=== PATIENT | female | born 1955 | race Hispanic/Latino ===

== ENCOUNTER 2018-07-08 14:57 | Emergency (ER) | payer OTHER ==
[2018-07-08 16:03] LABS: APPEARANCE,URINE Clear (CLEAR); BILIRUBIN,URINE Negative (NEGATIVE); COLOR,URINE Yellow (YELLOW); GLUCOSE, URINE (UA) Negative (NEGATIVE); KETONES,URINE 40 mg/dL (NEGATIVE); LEUKOCYTE ESTERASE ,URINE Negative (NEGATIVE); NITRATE,URINE Negative (NEGATIVE); OCCULT BLOOD,URINE Negative (NEGATIVE); PROTEIN,URINE Negative (NEGATIVE)
[2018-07-08 16:14] LABS: BACTERIA,URINE Moderate /HPF (None Seen); RBC,URINE 0-1 /HPF (0-1); SQUAMOUS EPITHELIAL CELL,UR 0-2 /HPF (0-2); WBC,URINE 0-1 /HPF (0-1)
[2018-07-08 16:18] LABS: BASOPHILS % (AUTO) 0.6 % (0.0-5.0); EOSINOPHILS % (AUTO) 0.1 % (0.0-8.0); HEMATOCRIT 45.1 % (36-48); LYMPHOCYTES % (AUTO) 34.9 % (21.0-51.0); MEAN CORPUSCULAR HEMOGLOBIN 27.9 pg (27.0-33.0); MEAN CORPUSCULAR HGB CONC 33.7 g/dL (32.0-36.0); MEAN CORPUSCULAR VOLUME 82.9 fL (79-99); MONOCYTES % (AUTO) 12.2 % (3.0-13.0); NEUTROPHILS % (AUTO) 52.2 % (40.0-77.0); NUCLEATED RED BLOOD CELLS 0.1 % (0.0-0.19); PLATELET COUNT (AUTO) 174 K/uL (130-400); RED BLOOD CELL COUNT(AUTO) 5.44 MIL/uL (4.00-5.50); RED CELL DISTRIBUTION WIDTH 14.5 % (11.0-15.5); WHITE BLOOD COUNT (AUTO) 4.9 K/uL (4.8-10.8)
[2018-07-08 16:28] LABS: INR 0.89 (0.85-1.15); PARTIAL THROMBOPLASTIN TIME 30.3 SEC (26.3-35.5); PROTHROMBIN TIME 9.4 SEC (9.6-11.6)
[2018-07-08 16:34] LABS: CARBON DIOXIDE 26 mmol/L (21-32); CHLORIDE 97 mmol/L (101-111); GLOMERULAR FILTR. RATE CALC 60 mL/min (>60); GLUCOSE,RANDOM 84 mg/dL (70-105); POTASSIUM 3.4 mmol/L (3.5-5.1); SODIUM SERUM 137 mmol/L (136-145); UREA NITROGEN, BLOOD 18 mg/dL (7-18)
[2018-07-08] MEDS ORDERED: SODIUM CHLORIDE 0.9% 1000ML 1,000 ML IV ONE (16:36)
[2018-07-08] MEDS ORDERED: ACETAMINOPHEN 325 MG TAB ONE (16:36)
[2018-07-08 16:43] LABS: ALANINE AMINOTRANSFERASE 56 U/L (12-78); ALBUMIN 3.6 g/dL (3.5-5.0); ASPARTATE AMINOTRANSFERASE 73 U/L (10-37); BILIRUBIN,TOTAL 0.8 mg/dL (0.2-1.0); CREATINE KINASE, TOTAL 110 U/L (21-232); MYOGLOBIN 52 ng/mL (10-92); TOTAL PROTEIN, SERUM 7.6 g/dL (6.0-8.3); TROPONIN I < 0.04 ng/mL (0.00-0.06)
[2018-07-08] MEDS ORDERED: SODIUM CHLORIDE 0.9% 50 ML IV ONE (17:27)
[2018-07-08] MEDS ORDERED: CEFTRIAXONE SODIUM 1 GM ONE (17:27)
[2018-07-08] MEDS ORDERED: OSELTAMIVIR PHOSPHATE 75 MG CAP ONE (19:02)
== END 2018-07-08 19:25 | disposition home or self-care (01) ==
LOC: EDH 14:57
DX: J10.1 Influenza due to other identified influenza virus with other respiratory manifestations (principal); E86.9 Volume depletion, unspecified; M32.9 Systemic lupus erythematosus, unspecified
CPT/HCPCS: 36415; 71045; 80053; 81001; 82550; 83605 ×2; 83874; 84484; 85025; 85610; 85730; 87040 ×2; 87088; 87804 ×2; 93005; 96361 ×2; 96374; 99284; J0696; J7030

== ENCOUNTER 2020-02-25 09:38 | Observation (INO) | payer OTHER ==
[~2020-02-25] VITALS: Ht 162.6 cm; Wt 71.7 kg
[2020-02-25] MEDS ORDERED: ASPIRIN 325 MG TABLET ONE (09:59)
[2020-02-25] MEDS ORDERED: NITROGLYCERIN 1GM/1 INCH PACKET TD ONE (09:59)
[2020-02-25] MEDS ORDERED: KETOROLAC TROMETHAMINE 15MG/ML ONE (09:59)
[2020-02-25 10:03] LABS: BASOPHILS % (AUTO) 0.7 % (0.0-5.0); EOSINOPHILS % (AUTO) 2.3 % (0.0-8.0); HEMATOCRIT 40.5 % (36-48); LYMPHOCYTES % (AUTO) 33.8 % (21.0-51.0); MEAN CORPUSCULAR HEMOGLOBIN 27.7 pg (27.0-33.0); MEAN CORPUSCULAR HGB CONC 32.3 g/dL (32.0-36.0); MEAN CORPUSCULAR VOLUME 85.6 fL (79-99); MONOCYTES % (AUTO) 6.2 % (3.0-13.0); NEUTROPHILS % (AUTO) 56.7 % (40.0-77.0); PLATELET COUNT (AUTO) 248 K/uL (130-400); RED BLOOD CELL COUNT(AUTO) 4.73 MIL/uL (4.00-5.50); RED CELL DISTRIBUTION WIDTH 13.9 % (11.0-15.5); WHITE BLOOD COUNT (AUTO) 9.7 K/uL (4.8-10.8)
[2020-02-25 10:32] LABS: ALBUMIN 3.6 g/dL (3.5-5.0); BILIRUBIN,TOTAL 0.6 mg/dL (0.2-1.0); POTASSIUM 3.8 mmol/L (3.5-5.1); TOTAL PROTEIN, SERUM 7.2 g/dL (6.0-8.3)
[2020-02-25 10:40] LABS: CREATININE 0.8 mg/dL (0.5-1.5)
[2020-02-25] MEDS ORDERED: HYDROCODONE/ACETAMINOPHEN 5/325 MG TAB PO PRN (12:45)
[2020-02-25] MEDS ORDERED: ACETAMINOPHEN-CODEINE 300/30MG TAB PO PRN (12:45)
[2020-02-25] MEDS ORDERED: HYDRALAZINE HCL 20 MG/ML VIAL IV PRN (12:45)
[2020-02-25] MEDS ORDERED: NITROGLYCERIN 0.4 MG SL TAB SL PRN (12:45)
[2020-02-25 15:00] VITALS: BP 101/57
[2020-02-25] MEDS ORDERED: ACETAMINOPHEN 325 MG TAB PO PRN ×2 (16:15)
[2020-02-25] MEDS: KETOROLAC TROMETHAMINE 15MG/ML IM PRN (19:18)
[2020-02-25 19:25] VITALS: BP 107/68
[2020-02-25 23:36] VITALS: BP 99/56
[2020-02-26 03:02] VITALS: BP 102/57
[2020-02-26 05:00] LABS: BASOPHILS % (AUTO) 0.7 % (0.0-5.0); HEMATOCRIT 37.8 % (36-48); LYMPHOCYTES % (AUTO) 43.5 % (21.0-51.0); MEAN CORPUSCULAR HEMOGLOBIN 28.2 pg (27.0-33.0); MEAN CORPUSCULAR HGB CONC 32.5 g/dL (32.0-36.0); MEAN CORPUSCULAR VOLUME 86.7 fL (79-99); MONOCYTES % (AUTO) 7.8 % (3.0-13.0); NEUTROPHILS % (AUTO) 44.8 % (40.0-77.0); PLATELET COUNT (AUTO) 246 K/uL (130-400); RED BLOOD CELL COUNT(AUTO) 4.36 MIL/uL (4.00-5.50); RED CELL DISTRIBUTION WIDTH 13.9 % (11.0-15.5)
[2020-02-26 05:38] LABS: CREATININE 0.9 mg/dL (0.5-1.5); POTASSIUM 4.1 mmol/L (3.5-5.1)
[2020-02-26 08:02] VITALS: BP 118/74
[2020-02-26] MEDS: ENOXAPARIN SODIUM 40 MG/0.4 ML SYRINGE SQ SCH (08:11)
[2020-02-26 11:37] VITALS: BP 107/67
[2020-02-26] MEDS ORDERED: REGADENOSON 0.4 MG/5 ML PF SYG IVP SCH (13:45)
[2020-02-26 18:19] VITALS: BP 138/73
[2020-02-26 19:57] VITALS: BP 113/73
[2020-02-26] MEDS ORDERED: METOPROLOL TARTRATE 25 MG TAB PO SCH (21:00)
[2020-02-26] MEDS ORDERED: ATORVASTATIN CALCIUM 20 MG TABLET PO SCH (21:00)
[2020-02-27 00:04] VITALS: BP 111/75
[2020-02-27 03:53] VITALS: BP 114/70
[2020-02-27 08:13] VITALS: BP 102/65
[2020-02-27] MEDS ORDERED: IBUP-2070 PO (08:15)
[2020-02-27] MEDS: ENOXAPARIN SODIUM 40 MG/0.4 ML SYRINGE SQ SCH (08:37)
[2020-02-27] MEDS: KETOROLAC TROMETHAMINE 15MG/ML IM PRN (08:37)
[2020-02-27] MEDS ORDERED: ASPIRIN 81MG TAB.CHEW PO SCH (09:00)
--- NOTE | 2020-02-27 09:30 | NUR ---
INSTRUCTIONS DISCHARGE INSTRUCTIONS GIVEN TO PATIENT USING TEACH BACK. NEW PRESCRIPTION ELECTRONICALLY SENT TO PATIENT'S PREFERRED PHARMACY REQUESTED. PATIENT REMOVED HER OWN IV WHEN NURSE WAS OUT OF THE ROOM. SITE APPEARS CLEAN WITH NO BLEEDING TO SITE. NO QUESTIONS OR CONCERNS VOICED. PENDING RIDE HOME.
== END 2020-02-27 09:50 | disposition home or self-care (01) ==
LOC: EDH 09:38 → EDHIP 12:40 → 3AH 13:44
PROVIDERS: ADMIT Hospitalist; ATTEND Hospitalist
DX: R07.89 Other chest pain (principal); M32.9 Systemic lupus erythematosus, unspecified; I20.9 Angina pectoris, unspecified; R94.31 Abnormal electrocardiogram [ECG] [EKG]; F17.200 Nicotine dependence, unspecified, uncomplicated; Z79.899 Other long term (current) drug therapy
CPT/HCPCS: 36415 ×2; 71045; 78452; 80048; 80053; 80061; 84484 ×3; 85025 ×2; 85378; 85651; 86140; 93005 ×2; 93017; 93306; 93356; 96372 ×3; 99291; A4600; A9500 ×2; G0378 ×42; J1650 ×2; J1885 ×3; J2785; 96374

== ENCOUNTER 2020-06-15 11:39 | Emergency (ER) | payer OTHER ==
[~2020-06-15 11:39] MED LIST: IBUP-2070 PO
[2020-06-15] MEDS ORDERED: ACETAMINOPHEN EXTRA STRENGTH 500 MG TABLET ONE (11:56)
[2020-06-15] MEDS ORDERED: LABETALOL 20 MG/4 ML DISP.SYRIN IV ONE (11:56)
[2020-06-15 12:22] LABS: BASOPHILS % (AUTO) 0.8 % (0.0-5.0); EOSINOPHILS % (AUTO) 1.8 % (0.0-8.0); HEMATOCRIT 40.3 % (36-48); LYMPHOCYTES % (AUTO) 36.5 % (21.0-51.0); MEAN CORPUSCULAR HEMOGLOBIN 28.3 pg (27.0-33.0); MEAN CORPUSCULAR HGB CONC 32.8 g/dL (32.0-36.0); MEAN CORPUSCULAR VOLUME 86.3 fL (79-99); NEUTROPHILS % (AUTO) 54.8 % (40.0-77.0); PLATELET COUNT (AUTO) 257 K/uL (130-400); RED BLOOD CELL COUNT(AUTO) 4.67 MIL/uL (4.00-5.50); RED CELL DISTRIBUTION WIDTH 13.5 % (11.0-15.5)
[2020-06-15 12:33] LABS: CREATININE 0.8 mg/dL (0.5-1.5); POTASSIUM 3.8 mmol/L (3.5-5.1)
[2020-06-15 12:35] LABS: INR 0.93 (0.85-1.15); PARTIAL THROMBOPLASTIN TIME 26.8 SEC (26.3-35.5); PROTHROMBIN TIME 10.1 SEC (9.6-11.6)
[2020-06-15 12:38] LABS: ALBUMIN 3.8 g/dL (3.5-5.0); BILIRUBIN,TOTAL 0.6 mg/dL (0.2-1.0); TOTAL PROTEIN, SERUM 7.5 g/dL (6.0-8.3)
[2020-06-15] MEDS ORDERED: KETOROLAC TROMETHAMINE 30MG/ML ONE ×2 (12:39→12:55)
[2020-06-15 13:08] LABS: RAPID GROUP A STREP NEGATIVE (NEGATIVE)
== END 2020-06-15 15:52 | disposition home or self-care (01) ==
LOC: EDH 11:39
DX: U07.1 COVID-19 (principal); G44.209 Tension-type headache, unspecified, not intractable; R03.0 Elevated blood-pressure reading, without diagnosis of hypertension; M32.9 Systemic lupus erythematosus, unspecified
CPT/HCPCS: 36415; 71045; 80053; 82550; 84484; 85025; 85610; 85730; 87426; 87804 ×2; 87880; 93005; 96361; 96374; 96375; 99285; J1885 ×2

== ENCOUNTER → 2021-04-16 | Outpatient (CLI) | payer OTHER | END | disposition home or self-care (01) | LOC: LAB 13:13 | PROVIDERS: ATTEND Internal Medicine | DX: M19.90 Unspecified osteoarthritis, unspecified site (principal); R53.83 Other fatigue; R51.0 Headache with orthostatic component, not elsewhere classified | CPT/HCPCS: 82306 ==

== ENCOUNTER → 2024-12-13 | Outpatient (CLI) | payer OTHER ==
[2024-12-13 15:16] LABS: BASOPHILS # (AUTO) 0.04 K/uL (0.00-0.20); BASOPHILS % (AUTO) 0.5 % (0.0-5.0); EOSINOPHILS # (AUTO) 0.14 K/uL (0.00-0.70); EOSINOPHILS % (AUTO) 1.7 % (0.0-8.0); HEMATOCRIT 40.9 % (36-48); IMMATURE GRANULOCYTE ABSOLUTE 0.02 K/uL (0-1); LYMPHOCYTES # (AUTO) 3.1 K/uL (1.0-4.8); LYMPHOCYTES % (AUTO) 36.5 % (21.0-51.0); MEAN CORPUSCULAR HEMOGLOBIN 28.6 pg (27.0-33.0); MEAN CORPUSCULAR HGB CONC 32.3 g/dL (32.0-36.0); MEAN CORPUSCULAR VOLUME 88.5 fL (79-99); MONOCYTES # (AUTO) 0.7 K/uL (0.1-1.0); MONOCYTES % (AUTO) 7.7 % (3.0-13.0); NEUTROPHILS # (AUTO) 4.5 K/uL (1.8-7.7); NEUTROPHILS % (AUTO) 53.4 % (40.0-77.0); PLATELET COUNT (AUTO) 242 K/uL (130-400); RED BLOOD CELL COUNT(AUTO) 4.62 MIL/uL (4.00-5.50); RED CELL DISTRIBUTION WIDTH 14.3 % (11.0-15.5); WHITE BLOOD COUNT (AUTO) 8.4 K/uL (4.8-10.8)
[2024-12-13 15:31] LABS: ALBUMIN 3.6 g/dL (3.5-5.0); BILIRUBIN,TOTAL 0.6 mg/dL (0.2-1.0); CREATININE 0.8 mg/dL (0.5-1.0); POTASSIUM 4.1 mmol/L (3.5-5.1); TOTAL PROTEIN, SERUM 7.3 g/dL (6.0-8.3)
[2024-12-13 15:39] LABS: THYROID STIMULATING HORMONE 1.03 uIU/mL (0.36-3.74)
== END | disposition home or self-care (01) ==
LOC: LAB 14:35
PROVIDERS: ATTEND Internal Medicine
DX: E03.9 Hypothyroidism, unspecified (principal); R53.83 Other fatigue; R41.3 Other amnesia; M35.9 Systemic involvement of connective tissue, unspecified
CPT/HCPCS: 36415; 80053; 80061; 84443; 85025; 85651; 86038; 86140; 86215; 86235

== ENCOUNTER → 2024-12-21 | Outpatient (CLI) | payer OTHER ==
--- NOTE | 2024-12-22 09:03 | HMCIMG ---
Exam Type: MAMMO SCREENING BILATERAL Clinical Information: ROUTINE SCREENING Comparison: March 04, 2015 Technique: The breasts are heterogenously dense, which may obscure small mases. Area of parenchymal asymmetry with possible architectural distortion seen involving the left breast upper outer quadrant. This warrants further evaluation with diagnostic mammography in the form of spot compression views and breast ultrasound. There is no nipple retraction or skin thickening. Benign-appearing calcifications are seen. CAD shows no additional worrisome regions. IMPRESSION: Areas of parenchymal asymmetry with possible architectural distortion which warrants further evaluation with diagnostic mammography in the form of spot compression views and breast ultrasound. BI-RADS: CATEGORY 0: INCOMPLETE. NEED ADDITIONAL IMAGING EVALUATION.
== END | disposition home or self-care (01) ==
LOC: RAH 10:43
PROVIDERS: ATTEND Internal Medicine
DX: Z12.31 Encounter for screening mammogram for malignant neoplasm of breast (principal); R92.333 Mammographic heterogeneous density, bilateral breasts
CPT/HCPCS: 77067

== ENCOUNTER → 2025-02-28 | Outpatient (CLI) | payer OTHER ==
[~2025-02-28] MED LIST changes: +IBUP-1492 PO; -IBUP-2070 PO
--- NOTE | 2025-02-28 09:43 | HMCIMG ---
Left BREAST ULTRASOUND: Findings: Real-time examination of the [right/left] breast demonstrates heterogeneous echotexture throughout the breast left breast at 1:00 there is a lesion measuring 1.9 x 1.8 x 1.9 cm it is heterogeneous with shadowing, than wide with microcalcification. Suspicion for possible malignancy.. The left breast at 3:00 there is a small cyst seen measuring 0.6 x 0.5 x 0.7 cm. There is atelectasis seen at 6:00 measuring 0.5 x 0.4 x 0.5 cm. The left axillary region there is a lymph node measuring 1.4 x 0.8 x 2.8 cm with fatty hilum.. IMPRESSION: Left breast at 1:00 there is a lesion seen with microcalcification and satting which is amenable for ultrasound-guided biopsy for histological sampling. FINAL ASSESSMENT: ACR: BI-RAD -4. Suspicious: Finding(s) without all the characteristics morphology of breast cancer but indicatingadefine probability of being malignant: biopsy should be considered.
--- NOTE | 2025-02-28 09:46 | HMCIMG ---
DIGITAL left breast DIAGNOSTIC MAMMOGRAM Technique: The digital mammographic examination of left breast in craniocaudal, mediolateral oblique views along with CAD was obtained. Coned-down compression view of the left breast was also obtained. History: This is a 69 years year-old female for follow-up for mammogram from 12/21/2024.. Patient has no family history of breast cancer. Patient has no complaint Reference:Prior mammogram from 12/21/2024, 03/04/2015 are available.. Breast composition: Breast composition C: The breasts are heterogeneously dense, which may obscure small masses. Finding: The digital mammographic examination of left breast in craniocaudal and mediolateral oblique view along with CAD demonstrates a lesion with microcalcification with spiculation which is seen and also a ultrasound at 1:00.. There are 2 other densities seen which demonstrate to be a cyst at 6:00 and 3:00 by ultrasound.. There is no evidence of any dendritic mass, cluster microcalcification or architectural distortion. The retromammary fat appears to be normal. IMPRESSION: Left breast at 1:00 there is a lesion approximately 2 cm with microcalcification and spiculation which is amenable for ultrasound-guided biopsy for histological sampling.. FINAL ASSESSMENT: ACR: BI-RAD -4. Suspicious: Finding(s) without all the characteristics morphology of breast cancer but indicatingadefine probability of being malignant: biopsy should be considered. NOTE: IF A WORK-UP OF THIS PATIENT LEADS TO A BIOPSY, PLEASE FORWARD A COPY OF THE PATHOLOGY REPORT TO OUR OFFICE REQUIRED BY [facility] EFFECTIVE APRIL 11, 1994. A NEGATIVE MAMMOGRAM SHOULD NOT PRECLUDE BIOPSY OF A CLINICALLY PALPABLE SUSPICIOUS MASS, 10% OF BREAST CANCERS ARE MAMMOGRAPHICALLY OCCULT. THIS MAMMOGRAPHY FACILITY IS FULLY ACCREDITED BY THE FOOD AND DRUG [employer]MIN[employer]RATION (FDA). THANK YOU FOR THIS REFERRAL.
== END | disposition home or self-care (01) ==
LOC: RAH 08:06
PROVIDERS: ATTEND Internal Medicine
DX: N60.02 Solitary cyst of left breast (principal); I25.10 Atherosclerotic heart disease of native coronary artery without angina pectoris; R92.8 Other abnormal and inconclusive findings on diagnostic imaging of breast
CPT/HCPCS: 76641; 77065

== ENCOUNTER → 2025-03-20 | Outpatient (CLI) | payer OTHER ==
[~2025-03-20] MED LIST changes: +LIDOCAINE HCL 1% 20 ML VIAL MISC ONE
[2025-03-20 10:06] LABS: INR 1.01 (0.85-1.15)
--- NOTE | 2025-03-20 11:30 | NUR ---
ULTRASOUND GUIDED LEFT BREAST NODULE BX PROCEDURE PERFORMED BY DR. GERTRUDIS PIERCE. PUNCTURE SITE TO LEFT OUTER BREAST AND PATIENT TOLERATED PROCEDURE WELL. SPECIMEN X4 COLLECTED AND SENT TO LAB. END OF PROCEDURE AT 1115. BIOPSY NEEDLE REMOVED AND BAND-AID APPLIED- NO BLEEDING NOTED. DISCHARGE INSTRUCTIONS GIVEN TO PATIENT AND VERBALIZED UNDERSTANDING. MAMMO OF LEFT BREAST TO FOLLOW FOR CONFIRMATION OF PLACEMENT OF TISSUE MARKER.
--- NOTE | 2025-03-21 13:16 | HMCIMG ---
DIGITAL left breast DIAGNOSTIC MAMMOGRAM postbiopsy Technique: The digital mammographic examination of left breast in craniocaudal, mediolateral oblique views along with CAD was obtained. History: This is a 69 years year-old female biopsy with placement of a biopsy marker Reference:Prior mammogram from 02/28/2025, 12/21/2024, and 03/04/2015 are available.. Breast composition: Breast composition C: The breasts are heterogeneously dense, which may obscure small masses. Finding: The digital mammographic examination of left breast in craniocaudal and mediolateral oblique view along with CAD demonstrates a biopsy marker posterior to the mass in place.. . IMPRESSION: Biopsy marker in place posterior to the lesion. FINAL ASSESSMENT: Post-procedure Mammogram for Marker Placement. NOTE: IF A WORK-UP OF THIS PATIENT LEADS TO A BIOPSY, PLEASE FORWARD A COPY OF THE PATHOLOGY REPORT TO OUR OFFICE REQUIRED BY [facility] EFFECTIVE APRIL 11, 1994. A NEGATIVE MAMMOGRAM SHOULD NOT PRECLUDE BIOPSY OF A CLINICALLY PALPABLE SUSPICIOUS MASS, 10% OF BREAST CANCERS ARE MAMMOGRAPHICALLY OCCULT. THIS MAMMOGRAPHY FACILITY IS FULLY ACCREDITED BY THE FOOD AND DRUG ADMINISTRATION (FDA). THANK YOU FOR THIS REFERRAL.
--- NOTE | 2025-03-21 14:48 | HMCIMG ---
PERCUTANEOUS ULTRASOUND-GUIDED BIOPSY OF left breast lesion at 1:00 BREAST MASS: CLINICAL HISTORY: This is a 69 [id number] female with left breast hypoechoic lesion at 1:00 for ultrasound-guided biopsy. The risk and benefit was explained to the patient. The risks include bleeding and infection. The patient consented to the procedure. Procedure: Under ultrasound guidance left breast lesion at 1:00 was localized. After sterile prep and drape, 1% Xylocaine was used for local anesthetic. Using a 14-gauge Bard gun a total of 4 core biopsy was obtained. Postbiopsy a biopsy marker was placed. The specimen was sent for histology and cell block. Patient tolerated procedure well. IMPRESSION: 1. PERCUTANEOUS ULTRASOUND-GUIDED BIOPSY OF left BREAST WITH SPECIMENS SENT FOR HISTOLOGY AND CELL BLOCK. THE PATIENT TOLERATED PROCEDURE WELL. PATHOLOGY REPORT IS PENDING. 2. PATIENT IS TO HAVE A POST BIOPSY MARKER PLACEMENT UNILATERAL left BREAST MAMMOGRAM.
== END ==
LOC: RAH 09:27
PROVIDERS: ATTEND Internal Medicine
DX: N63.21 Unspecified lump in the left breast, upper outer quadrant (principal); R92.8 Other abnormal and inconclusive findings on diagnostic imaging of breast; C50.412 Malignant neoplasm of upper-outer quadrant of left female breast; Z79.01 Long term (current) use of anticoagulants
CPT/HCPCS: 19083; 77065; 85610; 85730; 88361; 36415; 88305; 88342; 88341; A4215 ×2

== ENCOUNTER 2025-04-30 06:13 | Observation (INO) | payer OTHER ==
--- NOTE | 2025-04-26 12:55 | EKG ---
[facility] Test Date: 2025-04-26 Test Time: 12:47:09 Pat Name: JOVITA VERGARA Department: [facility] Room: Gender: F Manufacturing Baker: [id number] : 1955 Requested By: BENSON DUBOIS Order Number: [id number] Reading MD: Ag Reeder Measurements Intervals Hammond Rate: 63 P: 46 LA: 167 QRS: 88 QRSD: 99 T: 79 QT: 430 QTc: 441 Interpretive Statements Sinus rhythm Anteroseptal infarct, age indeterminate Compared to ECG 06/15/2020 12:06:35 Myocardial infarct finding now present T-wave abnormality no longer present Electronically Signed On 04-26-2025 16:33:19 CDT by Ag Reeder Please click the below link to view image of tracing.
[2025-04-26 13:05] LABS: IMMATURE GRANULOCYTE ABSOLUTE 0.02 K/uL (0-1); NUCLEATED RED BLOOD CELLS 0.0 % (0.0-0.19); PLATELET COUNT (AUTO) 242 K/uL (130-400); RED BLOOD CELL COUNT(AUTO) 4.48 MIL/uL (4.00-5.50); RED CELL DISTRIBUTION WIDTH 13.9 % (11.0-15.5); WHITE BLOOD COUNT (AUTO) 8.1 K/uL (4.8-10.8)
[2025-04-26 13:06] VITALS: BP 98/67; PULSE 66; RESP 13; TEMP 97.9
[2025-04-26 13:13] LABS: APPEARANCE,URINE CLEAR (CLEAR); GLUCOSE, URINE (UA) NEGATIVE (NEGATIVE); LEUKOCYTE ESTERASE ,URINE NEGATIVE Leu/uL (NEGATIVE); NITRATE,URINE NEGATIVE (NEGATIVE); OCCULT BLOOD,URINE NEGATIVE (NEGATIVE)
[2025-04-26 13:18] LABS: ADD UA MICROSCOPIC NO
[2025-04-26 13:23] LABS: ASPARTATE AMINOTRANSFERASE 15.0 U/L (10-37); CREATININE 0.7 mg/dL (0.5-1.0); GLOMERULAR FILTR. RATE CALC 94.0 mL/min (>90); GLUCOSE,RANDOM 78.0 mg/dL (70-105); SODIUM SERUM 140.0 mmol/L (136-145); TOTAL PROTEIN, SERUM 7.2 g/dL (6.0-8.3); UREA NITROGEN, BLOOD 16.0 mg/dL (7-18)
[2025-04-26 13:57] LABS: INR 0.97 (0.85-1.15)
--- NOTE | 2025-04-27 09:36 | NUR ---
RE: EKG REPORTED EKG RESULTS TO DR URIBE, NO NEW ORDERS RECEIVED.
[~2025-04-30] VITALS: Ht 161.3 cm; Wt 61.8 kg
[2025-04-30] VITALS (24 sets, daily range): BP systolic 101–133; BP diastolic 47–89; PULSE 62–114; RESP 16–19; TEMP 97.1–98.3; O2SAT 92
[~2025-04-30 06:13] MED LIST changes: +ALPR0.5T8 PO; -IBUP-1492 PO; -LIDOCAINE HCL 1% 20 ML VIAL MISC ONE; +RISE35TA12 PO
[2025-04-30] MEDS ORDERED: LIDOCAINE PF 100MG/5ML (2%) SYRINGE 5ML ONE (07:39)
[2025-04-30] MEDS ORDERED: MIDAZOLAM HCL 1 MG/ML 2ML VIAL ONE (07:39)
[2025-04-30] MEDS: LACTATED RINGERS 1000ML 1,000 ML IV ONE (08:26)
--- NOTE | 2025-04-30 10:00 | NUR ---
SENTINEL NODE MARKING PATIENT ARRIVED TO RADIOLOGY. PROCEDURE AND RISKS EXPLAINED. PATIENT VERBALIZED UNDERSTANDING. LT BREAST PREPPED WITH STERILE TECHNIQUE. FOUR INJECTIONS WITH RADIOACTIVE MATERIAL ADMINISTERED BY DR Heaven PIERCE. PATIENT TOLERATED PROCEDURE WELL AND LT BREAST LYMPH NODES MARKED BY FIRE HOSE CURER AND PATIENT TRANSPORTED TO [facility] AT 1000.
[2025-04-30] MEDS ORDERED: GLYCOPYRROLATE 0.2 MG/ML 5 ML VIAL ONE (11:20)
--- NOTE | 2025-04-30 13:23 | OP ---
Operative Note: DATE OF PROCEDURE: 04/30/25 Surgeon; Dr. Irizarry LEAK HUNTER: [] PREOPERATIVE DIAGNOSIS: left breast cancer POSTOPERATIVE DIAGNOSIS: Left breast cancer with clinically positive lymph nodes on a surgical exam PROCEDURE: Left Mastectomy with left axillary lymph node dissection INDICATIONS: Patient with a left breast cancer locally advanced needing local regional control DESCRIPTION OF PROCEDURE:Patient is brought to the operating room placed on the operating table in a supine position once general endotracheal anesthesia is achieved patient's left arm and chest are prepped and draped in sterile fashion. Using the hand-held Doppler identified the medial perforators are marked about the skin. I then used the ultrasound and identified in the upper quadrant the mass. There was an area that was very close to the skin. Therefore I marked my skin incision to include this area within my excision. I marked my inferior mammary fold, the sternum and the xiphoid and the superior border of the breast under the clavicle. we then proceeded to do elliptical incision over top of the breast and started to create our skin flaps started developing my superior and inferior skin flaps. Medially we went to the level of the sternum making sure to preserve the medial perforators that I had marked. superiorly to the level of the clavicle, inferior to the inframammary fold and lateral to her insertion of the serratus muscle. We then proceeded to use the Bovie cautery to remove the breast of the pectoralis muscle obtain hemostasis and remove the specimen completely. We marked the specimen with long white stitch lateral, long black stitch was cephalad, short white was medial, skin and superficial We obtain hemostasis within our surgical wound irrigated with saline. We then turned to the axilla with true node want to identified the lymph node. We found it and the measurement was 3000. We isolated it using the hand-held Harmonic. When palpating around it there was grossly positive lymph nodes in the axilla. Because of this decision is made to convert to an axillary dissection and not just the lymph node biopsy. Using blunt dissection identified the axillary vein and dissected the fatty pad distal to this with the hand-held harmonic we did a level 3 going under the pectoralis muscle where we could still feel positive lymph nodes. We handed off of the specimen as axillary dissection and then obtain hemostasis. And then proceeded to place our 10 Faroese drain into the lateral skin and secured into the skin with a nylon suture x2, leaving one drain in the superior skin flap and one in the inferior skin flap. Proceeded to excise any additional skin to create a aesthetic closure of the mastectomy site. We then proceeded to close the skin incisions with 2 layer fashion the deep dermal was closed with 0 Vicryl and the skin was closed with 4-0 Monocryl ru nning subcuticular fashion Dermabond was applied over top. 4 x 4's fluffs and Kerlix were applied over top and then Viraj bandage 6 inch for compression. Patient tolerated the procedure well all counts were correct x2 at the end of the procedure. ESTIMATED BLOOD LOSS: 10cc Devices left in place: 10 Faroese flat drain x 2 Specimens removed: Left breast, left axillary dissection BENSON IRIZARRY MD Apr 30, 2025 13:23
--- NOTE | 2025-04-30 14:19 | HMCIMG ---
CLINICAL INDICATION: Patient has history of left breast cancer with a recent biopsy for lymphoscintigraphy. EXAMINATION: Nuclear medicine lymphoscintigraphy COMPARISON: None available TECHNIQUE: After informed consent was obtained the patient's left breast was prepped with Betadine in the usual sterile fashion. 1 mCi of technetium 99 filtered sulfur colloid was divided into 4 separate aliquots and injected subdermally around the the areola. Dynamic images were obtained immediately as well as delayed images at 30 minutes and one hour. FINDINGS: There are 4 subdermal injection sites noted around the left briceño. In the left axilla there is an uptake seen in one hour delay study. IMPRESSION: 1. Lymphoscintigraphy performed with uptake seen in the left axillary region as described above.
[2025-04-30] MEDS: LACTATED RINGERS 1000ML 1,000 ML IV SCH (14:49)
--- NOTE | 2025-04-30 14:50 | NUR ---
PT AWAKE AND ALERT WITH CHEST WALL DRESSING WITH JASMIN WRAP OVER CHEST WALL. TWO LEFT CHEST WALL DRAINS NOTED AND LABELED DRAIN NUMBER 1 AND DRAIN NUMBER 2. SCD'S APPLIED AT THIS TIME. RT NOTIFIED OF POST OP PATIENT FOR IS THERAPY. PT C/O OF PAIN, PRN PAIN MED GIVEN AT THIS TIME. MD NOTIFIED OF CURRENT PAIN LEVEL. PT PLACED ON POST-OP VS PER PROTOCOL. CURRENT VS STABLE. CONTINUES INTRAVENOUS FLUIDS AT 75ML/HR PER MD ORDERS VIA IV PUMP.
[2025-04-30] MEDS: CYCLOBENZAPRINE HCL 10 MG TABLET PO SCH (21:11)
[2025-04-30] MEDS: GABAPENTIN 300 MG CAPSULE PO SCH (21:12)
[2025-05-01] VITALS: BP 108/55; PULSE 84; RESP 18; TEMP 98
[2025-05-01 04:00] VITALS: BP 91/46; PULSE 67; RESP 19; TEMP 97.7
[2025-05-01 05:21] LABS: IMMATURE GRANULOCYTE ABSOLUTE 0.03 K/uL (0-1); NUCLEATED RED BLOOD CELLS 0.0 % (0.0-0.19); PLATELET COUNT (AUTO) 205 K/uL (130-400); RED BLOOD CELL COUNT(AUTO) 3.56 MIL/uL (4.00-5.50); RED CELL DISTRIBUTION WIDTH 14.1 % (11.0-15.5); WHITE BLOOD COUNT (AUTO) 10.3 K/uL (4.8-10.8)
[2025-05-01 05:43] LABS: CREATININE 0.7 mg/dL (0.5-1.0); GLOMERULAR FILTR. RATE CALC 94.0 mL/min (>90); GLUCOSE,RANDOM 119.0 mg/dL (70-105); SODIUM SERUM 137.0 mmol/L (136-145); UREA NITROGEN, BLOOD 15.0 mg/dL (7-18)
[2025-05-01] MEDS: SODIUM BICARB IV ONE (07:45)
[2025-05-01] MEDS: [UNRECOGNIZED DRUG - OTHER] IV ONE (07:45)
[2025-05-01] MEDS: EPINEPHRINE IV ONE (07:45)
[2025-05-01 08:00] VITALS: BP 91/41; PULSE 70; RESP 20; TEMP 98.3
--- NOTE | 2025-05-01 09:48 | NUR ---
DCP: HOME Sw met with pt and her sister Keisha Cary [phone] who was at bedside. 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 Lives with her son Daniele Frankel [phone] at his home. Pt uses a walker for long distances. Has no HH or HD services at this time. PCP is jazmin Coleman, uses [facility] for rx. Pt denies dc needs and will return home with family Addendum: 05/01/25 at 0952 by COLT HENRY Amended: Links added.
--- NOTE | 2025-05-01 11:07 | NUR ---
BLOOD PRESSURE PATIENT'S BP AT 79/42 PULSE 70. PATIENT REFUSED RECHECK AND STATED HER BP IS USUALLY ON THE LOW SIDE WITH LOWEST SHE'S SEEN IS DIASTOLIC IN THE 50'S. STATED PRIMARY IS AWARE FO HYPOTENSION AND IS RECOMMENDED TO DRINK MORE FLUIDS AND SALT. NO MEDICATION PRESCRIBED. OFFERED WATER AND SALTINE CRACKERS TO ASSIST WITH INCREASING BP. PATIENT AGREED AND ATE CRACKERS PROVIDED. DENIES ANY S/S OF HYPOTENSION. PRIMARY MD NOTIFIED. WILL CONTINUE TO MONITOR.
[2025-05-01 12:08] VITALS: BP 88/53; PULSE 70; RESP 20; TEMP 97.8
--- NOTE | 2025-05-01 14:04 | DS ---
Discharge Summary HOSPITAL COURSE SUMMARY: [ This is a 69-year-old female postop day one for left mastectomy with left axillary lymph node dissection by Dr. Irizarry Interval history: This 69-year-old female who presented to the hospital for left mastectomy to be performed by Dr. Irizarry underwent procedure well with no acute complications or concerns. Patient is seen today resting in her room. Patient's pain controlled. PANCHO drains in place with serosanguineous output. Incision to left mastectomy clean and dry and well approximated with no sign of ischemia or active bleeding. Patient not requesting home health and we will be instructed on appropriate drain care and wound care Physical exam General: Awake alert and oriented Heart: Regular rate and rhythm} Lungs: Clear to auscultation no distress Abdomen: [Soft, nontender, nondistended Surgical site well approximated with no signs of ischemia PANCHO is in place Assessment : This is a 69-year-old female postop day one for left mastectomy with left axillary lymph node dissection by Dr. Irizarry Plan: At this point in time patient has been instructed on the importance of compliance with chest binder as well as monitoring output from PANCHO drains. Patient to continue with current pain management. Patient will be scheduled for follow up with Dr. Irizarry in 1-2 weeks. Patient also reminded that if any concerns of infection or postoperative complications presented to call the office and presents sooner. Dr. Irizarry to be updated in patient's status and patient be cleared for discharge today after dinner Surgical case has been discussed with my supervising physician in the above plan was formulated and agreed upon We appreciate the hospitalist team for us to participate in patient's care. Greater than 45 minutes of time spent patient, reviewing chart, working on documentation] MOLD RUNNER(S): [None] PROCEDURES: [This is a 69-year-old female postop day one for left mastectomy with left axillary lymph node dissection by Dr. Irizarry ] PROBLEM(S): [None] DISCHARGE INSTRUCTIONS: [ Continue with chest binder dressing Continue monitoring I's and O's of PANCHO drain Monitor for infection Follow up in two weeks with Dr. Irizarry is office] Home Meds Reported Medications Risedronate Sodium (Risedronate Sodium) 35 Mg Tablet, 35 MG PO QWEEK, TAB 04/26/25 Alprazolam (Alprazolam) 0.5 Mg Tablet, 0.5 MG PO HS PRN for SLEEP, TAB 10/16/25 Discontinued Scripts Ibuprofen (Ibuprofen) 600 Mg Tablet, 600 MG PO Q8hPRN PRN for PAIN for 4 Days, #12 TAB 0 Refills Prov:SCOTT BRANDT AGACNP 02/27/20 Time spent arranging discharge: 1-30 minutes KRISTIAN DANG Jr. PAC May 01, 2025 14:04
--- NOTE | 2025-05-01 15:51 | NUR ---
DISCHARGE DISCHARGE ORDERS OBTAINED FOR PATIENT TO BE DISCHARGED HOME. DISCHARGE INSTRUCTIONS AND DOCUMENTATION GIVEN TO PATIENT AT BEDSIDE. EDUCATED ON DRESSING CHANGES DAILY AND PRN INDICATED BY ADRY TOWNSEND. PATIENT VOICED UNDERSTANDING. IV DISCONTINUED, CATHETER INTACT, NO S/S OF INFECTION NOTED TO AREA. PATIENT TOLERATED WELL. BANDS REMOVED. PATIENT PENDING TRANSPORTATION BY SON.
[2025-05-01 16:24] VITALS: BP 92/58; PULSE 72; RESP 20; TEMP 98.1
--- NOTE | 2025-05-01 17:11 | NUR ---
DISCHARGE PATIENT LEFT VIA WHEELCHAIR ACCOMPANIED BY SON, NO S/S OF DISTRESS NOTED. GAUZE AND KERLIX PROVIDED FOR WOUND CARE PURPOSES. Addendum: 05/01/25 at 1713 by CELINE ZUÑIGA LVN LVN EDUCATED PATIENT TO KEEP LOG WITH OUTPUT FROM PANCHO DRAINS RECORDED SO SHE CAN PROVIDE TO MD ON UPCOMING FOLLOW UP APPOINTMENT. PANCHO DRAINS NUMBERED TO BE ABLE TO MONITOR PROPERLY OUTPUT FROM EACH DRAIN. PATIENT VOICED UNDERSTANDING.
== END 2025-05-01 17:20 | disposition home or self-care (01) ==
LOC: DAH 06:13 → DAHIP 06:14 → DAH 06:14 → 4AH 14:00 → 4BH 05-01 08:42
PROVIDERS: ADMIT Student in an Organized Health Care Education/Training Program; ATTEND Student in an Organized Health Care Education/Training Program
DX: C50.912 Malignant neoplasm of unspecified site of left female breast (principal); F41.9 Anxiety disorder, unspecified; F32.A Depression, unspecified; G40.909 Epilepsy, unspecified, not intractable, without status epilepticus; R79.1 Abnormal coagulation profile; Z79.899 Other long term (current) drug therapy; Z98.890 Other specified postprocedural states
CPT/HCPCS: 80053; 85025 ×2; 85610; 85730; 81003; 36415 ×2; 93005; 19303; 88307; 78195; 96374; 80048; A6260; G0378 ×28; A4663; J7120 ×2; A4344; A4649 ×3; J3010 ×3; J1100; J7030; J3490 ×4; J2003; J0169 ×2; J2250; J2704; J2405; J1885; J0690 ×2; A9541; A4930 ×2; A4215; A4223 ×2; A4213; A4222; A4221; A4216; A4510